=== PATIENT | male | born 1935 | race Caucasian/White ===

== ENCOUNTER 2017-01-14 12:55 | Inpatient (IN) | payer OTHER ==
--- NOTE | ~2017-01-14 | HP ---
History And Physical [id number] [place]. [address] NAME: SAMMY MOON : 31 STATUS : ADM IN [facility]#: [id number] AGE: 81 ADM/REG DATE : 01/14/17 MR#: [id number] REPORT SERV DATE: 01/14/17 DICTATED BY: CHRIS VASQUEZ III DATE: 01/14/17 REPORT STATUS : Draft TRANSCRIBED BY: JENA DATE: 01/14/17 DATE OF ADMISSION: 01/14/2017 HISTORY OF PRESENT ILLNESS: Mr. Sammy Moon is an 81-year-old white male, admitted for evaluation and treatment of symptomatic new onset type I atrial flutter with 2:1 AV conduction. The patient had been in his usual state of health until approximately three days prior to this admission. At that time, the patient noted the onset of progressive dyspnea on exertion, two-pillow orthopnea, and abdominal discomfort. The patient stated that his blood pressure monitor demonstrated heart rates of 145-155 beats per minute. The patient was subsequently seen in my office. A 12-lead electrocardiogram demonstrated type I atrial flutter with 2:1 AV conduction and a ventricular rate of 151 beats per minute. The patient was subsequently admitted for further evaluation and therapy. The patient denied palpitations, chest pain, syncope, paroxysmal nocturnal dyspnea, sacral edema, and pedal edema. The patient has no history of rheumatic fever or cardiac murmur. The patient's documented coronary artery disease risk factors include family history, hypertension, hyperlipoproteinemia, and peripheral arterial disease. PAST MEDICAL HISTORY: 1. Three-vessel coronary artery disease. 2. Hypertension. 3. Hyperlipoproteinemia. 4. Peripheral arterial disease. 5. Arthritis. 6. Benign prostatic hypertrophy. 7. 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 8. B-cell lymphoma. 9. History of pancreatitis with a pseudocyst, 1989. OPERATIVE PROCEDURES: 1. Status post Megan fundoplication. 2. Status post bilateral inguinal herniorrhaphies. 3. Status post splenectomy. 4. Status post cholecystectomy. 5. 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 6. Status post OU cataract extractions with intraocular lens implants. ALLERGIES: PENICILLIN. MEDICATIONS: 1. Aspirin 81 mg p.o. q.a.m. 2. Amlodipine 5 mg p.o. daily. 3. Artificial Tears, p.r.n. 4. Diazepam 5 mg p.o. b.i.d. 5. Hydrocodone/acetaminophen 7.5/325 mg p.o. q.6 hours, p.r.n. History And Physical [address] [place]. [address] NAME: SAMMY MOON : 31 STATUS : ADM IN [facility]#: [id number] AGE: 81 ADM/REG DATE : 01/14/17 MR#: [id number] REPORT SERV DATE: 01/14/17 DICTATED BY: CHRIS VASQUEZ III DATE: 01/14/17 REPORT STATUS : Draft TRANSCRIBED BY: JENA DATE: 01/14/17 6. Lisinopril 40 mg p.o. daily. 7. Nitroglycerin 0.4 mg sublingual p.r.n. chest pain. 8. Omeprazole 40 mg p.o. b.i.d. 9. MiraLAX one packet p.o. daily. 10.Simvastatin 20 mg p.o. q.h.s. 11.Sucralfate 1 g p.o. a.c. and q.h.s. 12.Terazosin 2 mg p.o. q.h.s. FAMILY HISTORY: Positive for myocardial infarction, hypertension, prostate cancer, bladder cancer, lung cancer, and rheumatoid arthritis. Negative for diabetes mellitus, stroke, seizures, kidney disease, liver disease, anemia, and mental illness. SOCIAL HISTORY: The patient had smoked approximately four packs of cigarettes per day for 40 years. The patient discontinued cigarette smoking at the age of 54. The patient discontinued alcohol use in 1988. PHYSICAL EXAMINATION: GENERAL: Physical examination demonstrated an alert, elderly white male, in moderate respiratory distress. VITAL SIGNS: Demonstrated that he was afebrile to touch. The respiratory rate was 18 breaths per minute. The patient's blood pressure was 124/90 mmHg with a heart rate of 145 beats per minute in the right upper extremity in the supine position. The patient's blood pressure was 108/60 mmHg with a heart rate of 130 beats per minute in the right upper extremity in the sitting position. The patient's blood pressure was 112/72 mmHg with a heart rate of 150 beats per minute in the right upper extremity in the standing position. SKIN: Warm and dry. NECK: Supple and nontender. There was decreased range of motion. There was no appreciable lymphadenopathy or thyromegaly. There was no jugular venous distention at 90 degrees. There were no carotid bruits. BACK: Examination of the back demonstrated an exaggerated thoracic kyphosis. There was no spinal or costovertebral angle tenderness. CHEST: Examination of the chest demonstrated bibasilar inspiratory crackles. There were decreased breath sounds at the bases. There were no rhonchi, wheezes, or pleural rubs. CARDIAC: Demonstrated a nonpalpable apical impulse. There was a regular rhythm and rate without murmur, rub, gallop, or mid systolic click. There were no thrills or heaves. ABDOMEN: Examination of the abdomen demonstrated that it was obese, soft, and protuberant. There was no appreciable hepatosplenomegaly or masses. Bowel sounds were intact. BACK: Examination of the extremities demonstrated they were symmetrical. There was decreased range of motion. There was 1+ pitting bilateral pedal edema. There was no cyanosis or clubbing. A supine resting 12-lead electrocardiogram obtained on 01/14/2017 demonstrated type I atrial flutter with 2:1 AV conduction and a ventricular rate of 151 beats per minute. There were diffuse nonspecific ST-segment and T-wave abnormalities. ASSESSMENT: Mr. Sammy Moon is an 81-year-old white male with four other risk factors for coronary atherosclerotic disease (i.e. family history, hypertension, History And Physical [address] [address] NAME: SAMMY MOON : 31 STATUS : ADM IN [facility]#: [id number] AGE: 81 ADM/REG DATE : 01/14/17 MR#: [id number] REPORT SERV DATE: 01/14/17 DICTATED BY: CHRIS VASQUEZ III DATE: 01/14/17 REPORT STATUS : Draft TRANSCRIBED BY: JENA DATE: 01/14/17 hyperlipoproteinemia, peripheral arterial disease), history of three-vessel coronary artery disease, status post PCI with implantation of a 2.5 mm x 12 mm Toribio Xience V EES in the mid portion of the left anterior descending coronary artery (02/21/2009), status post PCI with implantation of a 2.75 mm x 28 mm Toribio Xience V EES in the proximal portion of the left anterior descending coronary artery (02/21/2009), status post PCI with implantation of a 4.0 mm x 18 mm Toribio Xience Xpedition EES in the proximal portion of the right coronary artery (12/22/2013), status post PTCA with implantation of a 2.25 mm x 18 mm Toribio Xience Xpedition EES in the proximal portion of the left circumflex coronary artery (01/17/2014), mild aortic regurgitation, history of atrial fibrillation and paroxysmal supraventricular tachycardia, who now presents with symptomatic new onset type I atrial flutter with 2:1 AV conduction and a ventricular rate of 151 beats per minute. The patient is admitted for further evaluation and initiation of medical therapy. CJ/JENA Chris Vasquez III, M.D., [facility], [facility] / [id number] CC: Chris Vasquez III, M.D., [facility], [facility] Danisha Nogueira M.D. Noni Sinha M.D.
[~2017-01-14 12:55] MED LIST: ACCUNE1 INH; ASA5GR PO; ASAB PO; ATEN25 PO; ATEN50 PO; BENICAR20 PO; BRILINTA90 MG PO; CELEBREX2 PO; CELEXA10 PO; CO Q-10200 MG PO; CORDARONE PO; FL250 PO; FLOMAX4 PO; HYT2 PO; HYT5 PO; LISINOPRIL40 MG PO; LOP50 PO; LORT7 PO; MICROZIDE PO; MULTIVITAMI1 PO; NITROSTAT0.4 MG SL; NORCO1 TA2 PO; PACERONE100 MG PO; PEP20 PO; PEPCID40 MG OR; PEPCID40 MG PO; PEPTO BISMOL262 MG PO; PLAVIX PO; PRILOSEC40 MG PO; PRIN20 PO; PROTONIX PO; REFRESH PLUS O0.4 ML OPH; T PO; TETRACYCLINE500 MG PO; TOPXL50 PO; TYLENOL PM PO; V2 PO; V5 PO; VICODINTAB PO; ZANTAC150 MG PO; ZOCOR20 PO
[2017-01-14] MEDS ORDERED: LISINOPRIL40 MG PO (14:28)
[2017-01-14] MEDS ORDERED: NORCO1 TA2 PO (14:28)
[2017-01-14] MEDS ORDERED: ZOCOR20 PO (14:28)
[2017-01-14] MEDS ORDERED: SUCR PO (14:29)
[2017-01-14] MEDS ORDERED: HALF81 PO (14:29)
[2017-01-14] MEDS ORDERED: HYT2 PO (14:29)
[2017-01-14] MEDS ORDERED: V5 PO (14:29)
[2017-01-14] MEDS ORDERED: PRILOSEC40 MG PO (14:29)
[2017-01-14] MEDS ORDERED: NORV5 PO (14:30)
[2017-01-14] MEDS ORDERED: MIRALAX POWDER1 PKT PO (14:30)
[2017-01-14] MEDS ORDERED: NITROSTAT0.4 MG SL (14:30)
[2017-01-14] MEDS ORDERED: REFRESH OPH (14:31)
[2017-01-14 15:14] LABS: BASOPHILS 0.2 %; BASOPHILS ABSOLUTE 0.01 10/3/uL (0.0-0.16); EOSINOPHILS 0.2 %; EOSINOPHILS ABSOLUTE 0.01 10/3/uL (0.0-0.53); HEMATOCRIT 47.8 % (40.0-51.0); HEMOGLOBIN 15.9 g/dL (13.6-17.8); LYMPHOCYTES 13.7 %; LYMPHOCYTES ABSOLUTE 0.65 10/3/uL (0.67-4.30); MEAN CORPUS HGB CONC 33.3 g/dL (32.0-36.0); MEAN CORPUSCULAR VOLUME 96.2 fL (80-100); MEAN PLATELET VOLUME 11.3 fL (9.2-13.0); MONOCYTES 7.2 %; MONOCYTES ABSOLUTE 0.34 10/3/uL (0.21-1.20); NEUTROPHILS 78.7 %; NEUTROPHILS ABSOLUTE 3.74 10/3/uL (2.02-8.40); PLATELET COUNT 135 10/3/uL (150-400); RED CELL COUNT 4.97 10/6/uL (4.7-6.1)
[2017-01-14 15:20] LABS: INTERNATIONAL NORMAL RATI 1.2 UNITS (-); MANUAL DIFF NO %; PARTIAL THROMBO TIME 32.1 SEC (22.5-37.2); PROTIME (NOT ORD) 14.9 SEC (12.0-14.5); WHITE BLOOD CELLS 4.8 10/3/uL (4.5-10.5)
[2017-01-14 15:37] LABS: A/G RATIO 1.2 (0.7-1.9); ALBUMIN 3.6 G/DL (3.5-5.0); ALKALINE PHOSPHATASE 76 U/L (45-117); BUN (BLOOD UREA NITROGEN) 15 MG/DL (6-23); CALCIUM, SERUM 8.8 MG/DL (8.5-10.4); CHLORIDE, SERUM 98 MMOL/L (96-112); CO2 (CARBON DIOXIDE) 33 MMOL/L (24-34); CREATININE 1.06 MG/DL (0.70-1.30); FREE T4 1.32 NG/DL (0.76-1.46); GFR AFRICAN AMERICAN 75 ML/MIN (>=60); GFR NON AFRICAN AMERICAN 65 ML/MIN (>=60); GLUCOSE, SERUM 86 MG/DL (60-99); POTASSIUM, SERUM 4.2 MMOL/L (3.5-5.3); SGOT(AST) 18 U/L (5-40); SGPT(ALT) 16 U/L (5-65); SODIUM, SERUM 134 MMOL/L (135-148); TOTAL BILIRUBIN 1.3 MG/DL (0-1.2); TOTAL PROTEIN 6.6 G/DL (6.0-8.5); ULTRASENSITIVE TSH 0.773 MCIU/ML (0.358-3.740)
[2017-01-15] MEDS ORDERED: ELIQUIS 5 MG TAB5 MG PO (16:16)
[2017-01-15] MEDS ORDERED: TOPXL100 PO (16:16)
[2017-01-15] MEDS ORDERED: CARD120 PO (16:16)
[2017-02-13] MEDS ORDERED: TYLENOL PM PO (14:06)
[2017-02-16] MEDS ORDERED: SUCR PO (11:35)
== END 2017-01-15 18:17 | disposition home or self-care (01) | DRG 310 ==
LOC: 5NO 12:55
PROVIDERS: Internal Medicine Cardiovascular Disease
DX: I48.3 Typical atrial flutter (principal); I44.1 Atrioventricular block, second degree; I25.10 Atherosclerotic heart disease of native coronary artery without angina pectoris; I10 Essential (primary) hypertension; Z79.82 Long term (current) use of aspirin; Z87.891 Personal history of nicotine dependence; Z82.49 Family history of ischemic heart disease and other diseases of the circulatory system; Z95.5 Presence of coronary angioplasty implant and graft; Z85.118 Personal history of other malignant neoplasm of bronchus and lung; Z90.49 Acquired absence of other specified parts of digestive tract; N40.0 Benign prostatic hyperplasia without lower urinary tract symptoms; E78.5 Hyperlipidemia, unspecified; I48.2 Chronic atrial fibrillation
CPT/HCPCS: 71020; 80053; 84439; 84443; 85025; 85610; 85730; 93005; A9270-GY